=== PATIENT | female | born 1965 | race Caucasian/White ===

== ENCOUNTER 2019-09-22 11:50 | Outpatient (CLI) | payer OTHER ==
[~2019-09-22 11:50] MED LIST: REGADENOSON 0.4 MG/5 ML SYRINGE ONE
== END 2019-09-22 23:59 | disposition home or self-care (01) ==
LOC: CFH 11:50
PROVIDERS: ATTEND Internal Medicine Cardiovascular Disease
DX: Z01.810 Encounter for preprocedural cardiovascular examination (principal); Z13.6 Encounter for screening for cardiovascular disorders; R94.31 Abnormal electrocardiogram [ECG] [EKG]; I07.1 Rheumatic tricuspid insufficiency
CPT/HCPCS: 75571; 78452; 93017; 93306; A9502; J2785